=== PATIENT | female | born 1995 | race Caucasian/White ===

== ENCOUNTER 2019-07-22 19:42 | Emergency (ER) | payer SELFPAY ==
[~2019-07-22] VITALS: Ht 170.2 cm; Wt 64.4 kg
[2019-07-22 19:45] VITALS: BP 110/72
[2019-07-22] MEDS ORDERED: FLUORESCEIN OPHTHALMIC 1 MG STRIP EACHEYE ONE (20:00)
[2019-07-22] MEDS ORDERED: PROPARACAINE OPHTH 0.5%, 15ML EACHEYE ONE (20:00)
[2019-07-22] MEDS ORDERED: PROPARACAINE OPHTH 0.5%, 15ML ONE (20:19)
[2019-07-22] MEDS ORDERED: FLUORESCEIN OPHTHALMIC 1 MG STRIP ONE (20:19)
--- NOTE | 2019-07-22 20:46 | NUR ---
Pt states she found her contact kaitlynn she thought was in her eye in her contact case. Pa notified. Awaiting further order.
== END 2019-07-22 21:10 | disposition home or self-care (01) ==
LOC: ED 20:45
DX: H57.12 Ocular pain, left eye (principal)
CPT/HCPCS: 99283